=== PATIENT | female | born 1955 | race African-American/Black ===

== ENCOUNTER 2019-11-12 19:05 | Emergency (ER) | payer MEDICARE, MEDICAID, SELFPAY ==
--- NOTE | 2019-11-12 19:38 | PC.NURSE ---
pt daughter states I am going to leave and go home and call an ambulance, she cant just be waiting in this waiting room with nothing being done or anyone seeing her. This is crazy. RN explained that unfortantely we do not have any beds currently open and even if she called an ambulance that she would be brought back to our waiting room and then placed back at the end of the line. Pt daughter verbalized understanding and states were leaving see ya shortly
== END 2019-11-12 19:38 | disposition left against medical advice (07) ==
LOC: ANHED 19:52
DX: Z53.21 Procedure and treatment not carried out due to patient leaving prior to being seen by health care provider (principal)
CPT/HCPCS: 99199

== ENCOUNTER 2019-11-14 18:09 | Emergency (ER) | payer MEDICARE, SELFPAY ==
--- NOTE | ~2019-11-14 | XR_ITS ---
EXAMINATION: XR chest 1V portable DATE: 11/14/2019 19:11 INDICATION: Transient alteration of awareness. TECHNIQUE: A single frontal view of the chest was obtained. COMPARISON: Chest 2 views 06/17/2008 FINDINGS: There is no pneumonia, pleural effusion, or pneumothorax. Cardiomegaly is noted. There is a left chest wall pacer with leads in the right atrium and right ventricle. IMPRESSION: 1. Cardiomegaly. Reviewed, dictated and finalized at location A. IMPRESSION: 1. Cardiomegaly.
[2019-11-14 18:10] VITALS: BP 169/101; PULSE 95; RESP 20; TEMP 36.5; O2SAT 99
--- NOTE | 2019-11-14 18:51 | ECG_ITS ---
Measurements Intervals [place] Rate: 96 P: 57 NE: 116 QRS: -71 QRSD: 160 T: 107 QT: 417 QTc: 528 Interpretive Statements ATRIAL SENSE- ELECTRONIC VENTRICULAR PACEMAKER NO FURTHER INTERPRETATION IS POSSIBLE ATYPICAL ECG Electronically Signed On 11-14-2019 20:20:11 CDT by Jeremiah Motley D.O.
--- NOTE | 2019-11-14 18:52 | PC.NURSE ---
CALLED NATALIIA, PT DAUGHTER PER PT REQUEST. CALLED [phone]. DAUGHTER STATES PT USED TO LIVE IN [place] BUT WAS RECENTLY MOVED HERE DUE TO PT DEMENTIA. PT CURRENTLY LIVES WITH DAUGHTER NATALIIA. NATALIIA STATES PT SNUCK OUT OF THE HOUSE TODAY. PER NATALIIA SINCE PT HS BEEN MOVED IN WITH HER PT HAS BEEN TRYING TO SNEAK OUT TO RETURN TO [place] AND HAS BEEN HAVING INCREASING AGGITATION. DR HERRERA NOTIFIED
[2019-11-14 19:09] LABS: Basophils Percent Auto 0.2 % (0.2-1.2); Eosinophils Percent Auto 0.9 % (0-4.4); Hemoglobin 15.9 g/dL (12.0-15.0); Immature Granulocyte Absolute 0.01 K/mm3 (0.00-0.031); Immature Granulocyte Percent A 0.2 % (0-0.5); Lymphocytes Percent Auto 32.7 % (18.3-44.2); Mean Corpuscular HGB Conc 34.6 g/dl (32-36); Mean Corpuscular Hemoglobin 32.1 pg (26-34); Mean Corpuscular Volume 92.7 fl (80-100); Mean Platelet Volume 10.2 fl (7.4-10.4); Monocytes Absolute Auto 0.3 K/mm3 (0.1-0.6); Monocytes Percent Auto 7.9 % (2.6-8.5); Neutrophils Absolute Auto 2.5 K/mm3 (1.3-6.7); Neutrophils Percent Auto 58.1 % (45.5-73.1); Platelet Count Result 258 k/mm3 (150-375); Red Blood Count 4.96 M/mm3 (4.2-5.4); Red Cell Distribution Width 14.6 % (11.5-14.5); White Blood Count 4.3 K/mm3 (4.5-10.0)
[2019-11-14 19:11] LABS: Add Urine Microscopic? NO; Appearance Urine Clear (Clear); Bilirubin Urine Negative (Negative); Blood Urine Negative (Negative); Color Urine Straw (Yellow); Glucose Urine UA Negative (Negative); Ketones Urine Negative (Negative); Leukocyte Esterase Ur Negative LEU/UL (Negative); Nitrate Urine Negative (Negative); Protein Urine Negative (Negative); Specific Grav Ur 1.006 (1.001-1.035); Urobilinogen Urine Negative mg/dL (<2.0)
[2019-11-14] MEDS: SODIUM CHLORIDE 0.9% IV 2,000 ML 999 ML IV CONT (19:16)
[2019-11-14 19:17] LABS: Prothrombin Time 12.7 Seconds (11.1-14.7)
[2019-11-14 19:18] LABS: Partial Thromboplastin Time 29.2 SECONDS (22.3-36.8)
[2019-11-14 19:24] LABS: Alveolar/Arterial O2 Gradient 18.8 mmHg; Base Excess ABG 0.6 mEq/l (+/-2.0); Fractional Inspired Oxygen 21 %; HCO3 ABG 25.2 mEq/l (22.0-26.0); Oxygen Content ABG 19.9 %vol (16.0-22.0); Oxygen Saturation ABG 96.2 % (95.0-100.0); Oxyhemoglobin 90.8 % THb (90.0-100.0); PCO2 ABG 40.5 mmHg (35.0-45.0); PO2 ABG 82.4 mmHg (80.0-100.0); PO2 FiO2 Ratio Arterial Blood 3.92 %; Total Hemoglobin 15.6 g/dL (12.0-18.0); pH ABG 7.412 (7.350-7.450)
[2019-11-14 19:25] LABS: Device ROOM AIR; Modified Allen's Test Pass; Site Drawn RIGHT RADIAL
[2019-11-14 19:27] LABS: Amphetamine Screen Urine Negative (Negative); Barbiturate Screen Urine Negative (Negative); Benzodiazepines Screen Urine Negative (Negative); Cannabinoid Screen Urine Positive (Negative); Cocaine Screen Urine Negative (Negative); Methadone Screen Urine Negative (Negative); Opiate Screen Urine Negative (Negative); Phencyclidine Screen Urine Negative (Negative)
--- NOTE | 2019-11-14 19:33 | ED.GENADULT ---
HPI - General Adult General Chief complaint: Altered Mental Status Stated complaint: ams Time Seen by Provider: 11/14/19 18:14 Source: patient Limitations: no limitations History of Present Illness HPI narrative: Patient is 64 years old -[place] female brought to the ED by ambulance. Patient was found by PD wandering the street. Patient was confused about her age, patient told the manager part that she had alcohol last night and has not had much to eat today. On arrival to the emergency room patient is awake, alert and oriented x4, denying any complaints. Patient denies any fever, chills, nausea, vomiting, chest pain, back pain, abdominal pain, diarrhea, constipation, urinary symptoms. Related Data Allergies Allergy/AdvReac Type Severity Reaction Status Date / Time Penicillins Allergy Mild Unknown Verified 11/14/19 18:21 Review of Systems Review of Systems: Narrative: CONSTITUTIONAL: Denies fever, chills, or sweats. EYES: Denies visual changes, redness, or discharge. ENT: Denies rhinorrhea, congestion, sore throat, or otalgia. CARDIOVASCULAR: Denies chest pain, palpitations, or edema. RESPIRATORY: Denies cough or dyspnea. GASTROINTESTINAL: Denies abdominal pain, nausea, vomiting, or diarrhea. GENITOURINARY: Denies dysuria or hematuria. SKIN: Denies rash or itching. MUSCULOSKELETAL: Denies back pain, joint pain, or myalgia. NEUROLOGIC: Denies headache, numbness, or weakness. PSYCHIATRIC: Denies anxiety or depression. PMFSH Social History Social History (Updated 11/14/19 @ 20:16 by Gibson Toribio MD) Social History: Patient reports smoking, and drinking alcohol. Alcohol intake: current Substance use: current Exam Narrative: Exam Narrative: General appearance: Well-developed, well-nourished Skin: Normal color Head: Normocephalic, nontraumatic Eyes: Clear conjunctiva ENT: Oropharynx normal, ears normal, nose normal Neck: Supple, nontender Chest and respiratory: Airway patent, no respiratory distress, no accessory muscle use Heart: Regular rate/rhythm Abdomen: Soft, nontender, no organomegaly, quiet bowel sounds Vascular: Normal peripheral pulses, normal capillary refill. Musculoskeletal: Normal range of motion, nontender back Neurologic: Alert and oriented ?3, MEDICAL SAFETY DIRECTOR is normal as tested, no gross motor deficit Course Course Emergency Course: Stable Vital Signs Vital signs: Vital Signs Temperature 36.5 C 11/14/19 18:10 Pulse Rate 95 11/14/19 18:10 Respiratory Rate 20 11/14/19 18:10 Blood Pressure 169/101 H 11/14/19 18:10 Pulse Oximetry 99 11/14/19 18:10 Temperature 36.5 C 11/14/19 18:10 Pulse Rate 95 11/14/19 18:10 Respiratory Rate 20 11/14/19 18:10 Blood Pressure 169/101 H 11/14/19 18:10 Pulse Oximetry 99 11/14/19 18:10 Medical Decision Making MDM Narrative Medical decision making narrative: Later the daughter came to the emergency room and told me that patient have history of dementia and she go out wandering in the street every now and then, but she believes that lately may be a little bit more confused and would like to run some blood work-up to make sure everything is okay. Patient declined CAT scan of the head. Patient insisted to go home and does not like any blood work-up to be done. Blood work-up and urine analysis and chest x-ray showed no acute abnormality. Dementia with intermittent flareup is my concern. Vital Signs Vital Signs: Vital Signs Temperature 36.5 C 11/14/19 18:10 Pulse Rate 95 11/14/19 18:10 Respiratory Rate 20 11/14/19 18:10 Blood Pressure 169/101 H 11/14/19 18:10 Pulse Oximetry 99 11/14/19 18:10 Temperature 36.5 C 11/14/19 18:10 Pulse R
--- NOTE | 2019-11-14 19:44 | PC.NURSE ---
IVF CLARIFICATION-HE WANTS ONLY ONE LITER TOTAL FLUID INFUSED. PATIENT REFUSING CAT SCAN, DR HERRERA AWARE AND OK WITH THE REFUSAL. PATIENT HAD DAUGHTER ON PHONE-ALSO MADE HER AWARE OF PATIENTS REFUSAL. PATIENT EATING AND DRINKING AD MARYANN
[2019-11-14 19:46] LABS: Alanine Aminotransferase 11 U/L (4-35); Albumin Level 4.7 g/dL (3.5-5.1); Alkaline Phosphatase 71 U/L (38-126); Anion Gap 13 mmol/L (8-16); Aspartate Amino Transferase 32 U/L (14-36); Bilirubin,Total 0.7 mg/dL (0.2-1.3); Blood Urea Nitrogen 12 mg/dL (7-17); Calcium 9.7 mg/dL (8.4-10.2); Carbon Dioxide 25 mmol/L (22-30); Chloride 102 mmol/L (98-107); Estimated Glomerular Filt Rate > 60; Glucose 104 mg/dL (65-105); Potassium 3.4 mmol/L (3.4-5.0); Sodium 140 mmol/L (137-145)
[2019-11-14 19:48] LABS: Ammonia 14 umol/L (9-30)
[2019-11-14 20:10] VITALS: BP 180/91; PULSE 74; RESP 19; O2SAT 95
== END 2019-11-14 20:10 | disposition home or self-care (01) ==
PROVIDERS: Emergency Provider Emergency Medicine
DX: F12.90 Cannabis use, unspecified, uncomplicated (principal); F03.90 Unspecified dementia, unspecified severity, without behavioral disturbance, psychotic disturbance, mood disturbance, and anxiety; F17.200 Nicotine dependence, unspecified, uncomplicated; Z95.0 Presence of cardiac pacemaker; I51.7 Cardiomegaly
CPT/HCPCS: 36415; 36600; 71045; 80053; 80307; 81003; 82140; 82805; 84443; 85025; 85610; 85730; 93005; 96360; 99283; J7030